=== PATIENT | male | born 2000 | race Hispanic/Latino ===

== ENCOUNTER 2019-11-21 08:03 | Emergency (ER) | payer OTHER ==
[2019-11-21] MEDS ORDERED: Proparacaine 0.5% Opth 15 ML BOT ONE (08:14)
[2019-11-21] MEDS ORDERED: Fluorescein Opthalmic Strip ONE (08:14)
== END 2019-11-21 08:32 | disposition home or self-care (01) ==
LOC: ERS 08:03
DX: S05.02XA Injury of conjunctiva and corneal abrasion without foreign body, left eye, initial encounter (principal); W22.8XXA Striking against or struck by other objects, initial encounter; Y93.89 Activity, other specified; Y99.0 Civilian activity done for income or pay
CPT/HCPCS: 99283

== ENCOUNTER 2021-06-07 19:07 | Emergency (ER) | payer SELFPAY ==
[2021-06-07] MEDS ORDERED: Fluorescein Opthalmic Strip ONE (22:22)
[2021-06-07] MEDS ORDERED: Proparacaine 0.5% Opth 15 ML BOT ONE (22:22)
== END 2021-06-07 23:00 | disposition home or self-care (01) ==
LOC: ERS 19:07
DX: S05.01XA Injury of conjunctiva and corneal abrasion without foreign body, right eye, initial encounter (principal); X58.XXXA Exposure to other specified factors, initial encounter
CPT/HCPCS: 99283